=== PATIENT | female | born 1990 | race Caucasian/White ===

== ENCOUNTER 2023-10-29 17:28 | Emergency (ER) | payer OTHER, SELFPAY ==
[2023-10-29 17:35] VITALS: BP 132/79; PULSE 78; RESP 16; TEMP 36.6; O2SAT 99; BMI 33.3
--- NOTE | 2023-10-29 18:12 | ED_ITS ---
HPI - Wound/Laceration General Chief Complaint: Laceration/Wound Stated Complaint: cut on R hand Time Seen by Provider: 10/29/23 17:45 History of Present Illness HPI narrative: This 33-year-old female comes in with a laceration to her right hand. She was taking a knife out of the registered nurse post partum when she accidentally cut into the palm of her right hand. This occurred last evening. She did not come in then because there was a snowstorm. Her tetanus is up-to-date and last administered about 6 or 7 years ago. Related Data Allergies Allergy/AdvReac Type Severity Reaction Status Date / Time Sulfa (Sulfonamide AdvReac Severe Rash Verified 10/29/23 17:34 Antibiotics) Review of Systems Status of ROS: Reports: 10 or more systems reviewed and unremarkable except as noted in History and below Narrative: Constitutional: No fevers, no weight gain or loss. Eyes: No discharge. No vision changes. HENT: No congestion, no sore throat, no ear pain. Cardiovascular: No chest pain, no palpitations. Respiratory: No shortness of breath, no wheezes, no cough. Gastrointestinal: No abdominal pain, no vomiting, no diarrhea. Genitourinary: No dysuria, no hematuria. Musculoskeletal: Normal range of motion. Skin: No rashes, no pruritis. Neurological: No dizziness, weakness, sensory change, speech change. Endo/Heme/Allergies: No bruising or bleeding. No polydipsia. Pysch: no suicidality, no anxiety, no insomnia. All other systems reviewed and are negative. Exam Narrative: Exam Narrative: Constitutional: Well-developed, well-nourished, no acute distress. HEENT: Normocephalic, atraumatic. Neck: Normal range of motion. Nontender. Supple. Heart: Intact distal pulses. Lungs: No chest discomfort. No wheezes, rhonchi, or rales. Abdomen: Nontender. Back: Normal range of motion. Extremities: Normal range of motion. The palm of the right hand is a 2 cm linear laceration. Skin: Intact. No rash. Warm. No erythema or pallor. Neurologic: No altered sensation. No weakness. Alert and oriented. Psychiatric: No suicidality. No anxiety or depression. No insomnia. Nursing notes and vitals signs are reviewed. Const: Vital Signs, click to edit/add: Vital Signs - 24 hr 10/29/23 17:35 Temperature 97.8 F Pulse Rate [Right Pulse Oximeter] 78 Respiratory Rate 16 Blood Pressure [Ri ght Upper Arm] 132/79 Pulse Oximetry 99 Oxygen Delivery Me thod Room Air Course Vital Signs Vital signs: Initial Vital Signs Temperature 97.8 F 10/29/23 17:35 Temperature Source Temporal Artery Scan 10/29/23 17:35 Pulse Rate 78 10/29/23 17:35 Pulse Rhythm Regular, Irregularly Irregular 10/29/23 17:35 Respiratory Rate 16 10/29/23 17:35 Blood Pressure 132/79 10/29/23 17:35 Blood Pressure Mean 96 10/29/23 17:35 Blood Pressure Position Sitting 10/29/23 17:35 Pulse Oximetry 99 10/29/23 17:35 Oxygen Delivery Method Room Air 10/29/23 17:35 Vital Signs Temperature 97.8 F 10/29/23 17:35 Pulse Rate 78 10/29/23 17:35 Respiratory Rate 16 10/29/23 17:35 Blood Pressure 132/79 10/29/23 17:35 Pulse Oximetry 99 10/29/23 17:35 Oxygen Delivery Method Room Air 10/29/23 17:35 Temperature 97.8 F 10/29/23 17:35 Pulse Rate 78 10/29/23 17:35 Respiratory Rate 16 10/29/23 17:35 Blood Pressure 132/79 10/29/23 17:35 Pulse Oximetry 99 10/29/23 17:35 Oxygen Delivery Method Room Air 10/29/23 17:35 MDM - Wound/Laceration MDM Narrative Medical decision making narrative: This patient has a laceration on the palm of her hand that occurred more than 12 hours ago. I did explain that repair of the wound after 12 hours may have some increased risk for infection. This was a rather clean injury and the risk seems quite low. Her tendon and nerve function is intact. The wound was explored to its base. I did administer 1% lidocaine by injection. The wound was then cleansed. I placed 3 sutures in interrupted fashion using 4.0 Ethilon suture. Instructions were giving regarding wound care and the need to return to clinic urgent care in 7-10 days for suture removal. Discharge Plan Discharge Clinical Impression: Laceration Patient Disposition: Home, Self-Care Condition: Improved Additional Instructions: Keep wound clean and dry. Return to clinic urgent care in 7-10 days for suture removal. Follow Up/Referrals: Mell Moran MD [Primary Care Provider] - Stand Alone Forms: [employer] Info Instructions
== END 2023-10-29 18:31 | disposition home or self-care (01) ==
PROVIDERS: Emergency Provider Emergency Medicine Emergency Medical Services; PCP Obstetrics & Gynecology
DX: S61.411A Laceration without foreign body of right hand, initial encounter (principal); W26.0XXA Contact with knife, initial encounter
CPT/HCPCS: 12001; 99283; 99284